=== PATIENT | female | born 1995 | race Hispanic/Latino ===

== ENCOUNTER 2016-10-08 14:43 | Emergency (ER) | payer MEDICAID ==
[2016-10-08 14:51] VITALS: BP 127/67; PULSE 91; RESP 19; TEMP 98.8; O2SAT 100
--- NOTE | 2016-10-08 15:16 | ED PDOC ---
HPI: Abdomen History Per: Patient History/Exam Limitations: no limitations Onset/Duration Of Symptoms: Hrs (13) Outside of [place] travel?: No Current Symptoms Are (Timing): Better Severity: Mild Location Of Pain/Discomfort: Epigastric Quality Of Discomfort: Unable To Describe Associated Symptoms: Chills, Nausea, Vomiting, Loss Of Appetite, Back Pain ( chronic). denies: Diarrhea, Chest Pain, Constipation, Urinary Symptoms Exacerbating Factors: None Alleviating Factors: None Last Bowel Movement: Today Additional History Per: Patient Last Menstral Period: 10/04/16 : 2 Para: 2 <Michelle aMciel - Last Filed: 10/08/16 16:52> <Anthony Cobian - Last Filed: 10/08/16 16:58> Time Seen by Provider: 10/08/16 15:11 Chief Complaint (Nursing): GI Problem Supervising Attending Note - Supervising Attending Note The Documented history was done by the: Physician Optometric Assistant, Attending Physician The documented physical exam was done by the: Physician Optometric Assistant, Attending Physician The documented procedures were done by the: Physician Optometric Assistant, Attending Physician - Attestation: I have personally seen and examined this patient.: Yes I have fully participated in the care of the patient.: Yes I have reviewed all pertinent clinical information: Yes <Anthony Cobian - Last Filed: 10/08/16 16:58> Past Medical History - Medical History PMH: Anemia, Asthma - Surgical History Surgical History: Appendectomy, - Family History Family History: States: Unknown Family Hx - Immunization History Hx Tetanus Toxoid Vaccination: No Hx Influenza Vaccination: No Hx Pneumococcal Vaccination: No <Michelle Maciel - Last Filed: 10/08/16 16:52> <Anthony Cobian - Last Filed: 10/08/16 16:58> Vital Signs: Last Vital Signs Temp 98.8 F 10/08/16 14:50 Pulse 91 H 10/08/16 14:50 Resp 19 10/08/16 14:50 BP 127/67 10/08/16 14:50 Pulse Ox 100 10/08/16 16:52 - Home Medications Home Medications: Ambulatory Orders Medication Instructions Recorded Nitrofurantoin Macrocrystals 100 mg PO BID #14 cap 03/07/15 [Macrobid] Ondansetron [Zofran] 4 mg PO Q8H #12 tab 04/10/16 Famotidine [Pepcid] 20 mg PO DAILY #14 tab 10/08/16 - Allergies Allergies/Adverse Reactions: Allergies Allergy/AdvReac Type Severity Reaction Status Date / Time No Known Allergies Allergy Verified 10/08/16 14:46 Review of Systems ROS Statement: Except As Marked, All Systems Reviewed And Found Negative <Michelle Maciel - Last Filed: 10/08/16 16:52> Physical Exam - Reviewed Vital Signs Reviewed: Yes (hr 91) - Physical Exam Appears: Positive for: Uncomfortable Head Exam: Positive for: ATRAUMATIC, NORMAL INSPECTION Skin: Positive for: Normal Color, Warm, Dry Eye Exam: Positive for: Normal appearance ENT: Positive for: Nasal Congestion. Negative for: Pharyngeal Erythema, Tonsillar Exudate Neck: Positive for: Normal, Painless ROM Cardiovascular/Chest: Positive for: Regular Rate, Rhythm, Chest Non Tender. Negative for: Murmur Respiratory: Positive for: Normal Breath Sounds. Negative for: Decreased Breath Sounds, Rales, Rhonchi, Wheezing ( ) <Michelle Maciel - Last Filed: 10/08/16 16:52> - Laboratory Results Result Diagrams: 10/08/16 15:32 10/08/16 15:32 Urine POC: Negative Urine dip results: Positive for: Blood - ECG O2 Sat by Pulse Oximetry: 100 <Michelle Maciel - Last Filed: 10/08/16 16:52> - Laboratory Results Result Diagrams: 10/08/16 15:32 10/08/16 15:32 <Anthony Cobian - Last Filed: 10/08/16 16:58> - Progress ED Course And Treament: Refusing medications for pain. WORKUP: * CBC * CMP * LIPASE * UDIP * UPREG reassess Pt seen and examined with Dr. Cobian. 16:40 CBC: microcytic anemia, hg 10.4 CMP: WNL Lipase : WNL Upreg negative udip +blood Pt stable in ED. No complaints presently. Informed pt of anemia. Need to establish care with PCP. Pt refused PO challenge. Stable to d/c home. (Michelle Maciel) Disposition - Patient ED Disposition Is Patient to be Admitted: No - Disposition Disposition: Routine/Home Disposition Time: 16:48 <Michelle Maciel - Last Filed: 10/08/16 16:52> <Anthony Cobian - Last Filed: 10/08/16 16:58> - Clinical Impression Clinical Impression: Abdominal pain, Vomiting - Disposition Referrals: at [place] [Outside] Condition: GOOD Additional Instructions: Follow up with your PCP in 2-3 days. Return for worsening. Prescriptions: Famotidine [Pepcid] 20 mg PO DAILY #14 tab Instructions: Abdominal Pain (ED) Forms: [facility] ED School/Work Excuse Print Language: MALAGASY
[2016-10-08 15:45] LABS: BASO % 0.4 % (0.0-2.0); EOS # 0.2 K/uL (0.0-0.7); EOS % 2.8 % (0.0-4.0); HEMOGLOBIN 10.4 g/dL (12.0-16.0); LYMPH # 1.5 K/uL (1.0-4.3); LYMPH % 20.8 % (20.0-40.0); MEAN CELL VOLUME 75.9 fl (81.0-99.0); MEAN CORPUSCULAR HEMOGLOBIN 24.2 pg (27.0-31.0); MEAN CORPUSCULAR HGB CONC 31.8 g/dL (33.0-37.0); MEAN PLATELET VOLUME 8.4 fl (7.2-11.7); MONO # 0.7 K/uL (0.0-0.8); MONO % 9.3 % (0.0-10.0); NEUT # 4.8 K/uL (1.8-7.0); NEUT % 66.7 % (50.0-75.0); NRBC % 0.1 % (0.0-0.0); RBC 4.31 Mil/uL (3.80-5.20); RED CELL DISTRIBUTION WIDTH 18.1 % (11.5-14.5); WHITE BLOOD COUNT 7.1 K/uL (4.8-10.8)
[2016-10-08 16:08] LABS: ALB/GLOB RATIO 1.2 (1.0-2.1); ALBUMIN 4.4 g/dL (3.5-5.0); ALT/SGPT 37 U/L (9-52); AST/SGOT 22 U/L (14-36); BLOOD UREA NITROGEN 9 mg/dl (7-17); CALCIUM 9.4 mg/dL (8.4-10.2); GFR AFRICAN-AMERICAN > 60; GFR NON-AFRICAN AMERICAN > 60; LIPASE 45 U/L (23-300)
== END 2016-10-08 17:00 | disposition home or self-care (01) ==
LOC: H.ER 14:43
DX: R10.13 Epigastric pain (principal); R11.10 Vomiting, unspecified; J45.909 Unspecified asthma, uncomplicated

== ENCOUNTER 2016-10-28 12:01 | Emergency (ER) | payer MEDICAID, OTHER ==
[2016-10-28 12:06] VITALS: BP 132/76; PULSE 84
[2016-10-28 12:11] VITALS: RESP 16; TEMP 97; O2SAT 98
--- NOTE | 2016-10-28 12:43 | ED PDOC ---
Upper Extremity Pain/Injury Time Seen by Provider: 10/28/16 12:12 Chief Complaint (Nursing): Upper Extremity Problem/Injury Chief Complaint (Provider): Right wrist pain History Per: Patient, Other (patient arrives with co-worker who is translating in german on behalf of patient) History/Exam Limitations: no limitations Current Symptoms Are (Timing): Still Present Quality: "Pain" Additional Complaint(s): Roe Reveles is a 21 y/o right-handed dominant female presenting to the ER on 10/28/2016 with complaints of pain to her right wrist. Patient reports pain originated after a machine fell onto her right wrist while at work. Patient has pain and swelling to her wrist along with a small abrasion. She denies any other injuries at this time. No associated hand pain, no numbness or tingling. Past Medical History Reviewed: Historical Data, Nursing Documentation, Vital Signs Vital Signs: Last Vital Signs Temp 97.0 F L 10/28/16 12:08 Pulse 84 10/28/16 12:08 Resp 16 10/28/16 12:08 BP 132/76 10/28/16 12:08 Pulse Ox 98 10/28/16 12:08 - Medical History PMH: Asthma - Surgical History Surgical History: Appendectomy, - Family History Family History: States: No Known Family Hx - Living Arrangements Living Arrangements: With Family - Social History Current smoker - smoking cessation education provided: No Alcohol: None Drugs: Denies - Immunization History Hx Tetanus Toxoid Vaccination: Yes - Home Medications Home Medications: Ambulatory Orders Medication Instructions Recorded Nitrofurantoin Macrocrystals 100 mg PO BID #14 cap 03/07/15 [Macrobid] Ondansetron [Zofran] 4 mg PO Q8H #12 tab 04/10/16 Famotidine [Pepcid] 20 mg PO DAILY #14 tab 10/08/16 - Allergies Allergies/Adverse Reactions: Allergies Allergy/AdvReac Type Severity Reaction Status Date / Time No Known Allergies Allergy Verified 10/08/16 14:46 Review of Systems ROS Statement: Except As Marked, All Systems Reviewed And Found Negative Musculoskeletal: Positive for: Other (right wrist injury) Physical Exam - Reviewed Nursing Documentation Reviewed: Yes Vital Signs Reviewed: Yes - Physical Exam Appears: Positive for: Non-toxic, No Acute Distress Skin: Positive for: Normal Color. 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 Negative for: Deformity Neurologic/Psych: Positive for: Alert, Oriented. Negative for: Motor/Sensory Deficits - ECG O2 Sat by Pulse Oximetry: 98 Pulse Ox Interpretation: Normal - Other Rad Right wrist x-ray X-Ray: Interpreted by Me, Viewed By Me X-Ray Interpretation: no fx, no dis Medical Decision Making Medical Decision Makin:12 Initial Impression- 21 y/o female with right wrist pain Initial Plan- * XR Right Wrist Pt declined pain medications. X-ray is negative. Velcro wrist splint applied. Advised ice, elevation and NSAID's prn pain. Patient was referred to ortho manufacturing controller for follow up. Documented by Sharon Velarde, acting as a scribe for Hanna Ng PA-C All medical record entries made by the Scribe were at my direction and personally dictated by me. I have reviewed the chart and agree that the record accurately reflects my personal performance of the history, physical exam, medical decision making, and the department course for this patient. I have also personally directed, reviewed, and agree with the discharge instructions and disposition. Procedures - Splinting Location: right wrist Pre-Made Type: velcro Pre-Proc Neuro Vasc Exam: normal Post-Proc Neuro Vasc Exam: normal Disposition - Clinical Impression Clinical Impression: Wrist sprain, Abrasion - Patient ED Disposition Is Patient to be Admitted: No Counseled Patient/Family Regarding: Studies Performed, Diagnosis, Need For Followup - Disposition Referrals: Gonzales Rios III, MD [Staff Provider] - Disposition: Routine/Home Disposition Time: 13:07 Condition: STABLE Additional Instructions: Ice, rest and elevate affected area. Over the counter tylenol or advil as needed for pain. Follow up with orthopedist for any persistent symptoms. Instructions: Wrist Sprain (ED) Forms: [employer] (Azeri), [facility] ED School/Work Excuse Print Language: FRISIAN
--- NOTE | 2016-10-28 18:24 | RAD ---
PROCEDURE: Right Wrist Radiographs. HISTORY: trauma COMPARISON: None. FINDINGS: BONES: Normal. No fracture. JOINTS: Normal. No dislocation. SOFT TISSUES: Normal. OTHER FINDINGS: None. IMPRESSION: Unremarkable right wrist radiographs Concordant results with the preliminary interpretation rendered by the emergency department physician procedure.
== END 2016-10-28 13:13 | disposition home or self-care (01) ==
LOC: H.ER 12:01
DX: S63.501A Unspecified sprain of right wrist, initial encounter (principal); W22.8XXA Striking against or struck by other objects, initial encounter; Y99.0 Civilian activity done for income or pay

== ENCOUNTER 2016-11-11 16:18 | Emergency (ER) | payer MEDICAID, OTHER ==
[2016-11-11 16:34] VITALS: BP 130/74; PULSE 93; RESP 18; TEMP 98.7; O2SAT 100
[2016-11-11] MEDS ORDERED: Sodium Chloride 0.9% 1,000 ML IV STA (17:07)
[2016-11-11] MEDS ORDERED: Atropine-Diphenoxylate 0.025-2.5 mg Tab PO STA (17:07)
--- NOTE | 2016-11-11 17:10 | ED PDOC ---
HPI: Abdomen Chief Complaint (Provider): diarrhea and abdominal pain History Per: Patient Onset/Duration Of Symptoms: Days (1) Outside of [place] travel?: No Current Symptoms Are (Timing): Still Present Location Of Pain/Discomfort: Diffuse, Epigastric Quality Of Discomfort: Cramping Associated Symptoms: Diarrhea. denies: Fever, Chills, Nausea, Vomiting, Urinary Symptoms Exacerbating Factors: Food Last Bowel Movement: Today Abnormal Vaginal Bleeding: No Last Menstral Period: 10/27/16 : 2 Para: 2 (one set of twins; one child who ) <Rachana Ortiz - Last Filed: 11/11/16 18:39> <Hanna Dee - Last Filed: 11/11/16 18:59> Time Seen by Provider: 11/11/16 16:37 Chief Complaint (Nursing): Abdominal Pain Additional Complaint(s): Pt is 21 yo F with PMH asthma and anemia presented to the ED with complaint of abdominal pain and diarrhea x 1 day, since yesterday at 6 am (35 hrs). Pt states that she woke up to cramping stomach yesterday morning and had the first episode of diarrhea. Pt had 9 more episodes yesterday during the day, woke up 3 times overnight, and had 4 more episodes this morning. Denies any recent travel , antibiotic use, supplement use, new/changes in medications, changes in diet. Has not tried any medications, states food makes the pain worse and exacerbates the diarrhea. Patient states the pain is non-radiating, constant but gets worse when there is cramping, rates the pain 10/10 when the cramping is present and 6/ 10 when it is not. States that when there is cramping and she has a bowel movement, the pain is somewhat alleviated until the next episode of cramping. Denies vomiting, nausea, chest pain, shortness of breath, dizziness. (Rachana Ortiz) Supervising Attending Note - Supervising Attending Note The Documented history was done by the: Physician Fixture Designer, Attending Physician The documented physical exam was done by the: Physician Fixture Designer, Attending Physician - Attestation: I have personally seen and examined this patient.: Yes I have fully participated in the care of the patient.: Yes I have reviewed all pertinent clinical information: Yes <Hanna Dee - Last Filed: 11/11/16 18:59> Past Medical History - Medical History PMH: Anemia, Asthma - Surgical History Surgical History: Appendectomy, - Family History Family History: States: No Known Family Hx - Social History Current smoker - smoking cessation education provided: No (never smoker) Alcohol: Social (birthdays, holidays) Drugs: Denies - Immunization History Hx Tetanus Toxoid Vaccination: Yes Hx Influenza Vaccination: No Hx Pneumococcal Vaccination: No <Rachana Ortiz - Last Filed: 11/11/16 18:39> <Hanna Dee - Last Filed: 11/11/16 18:59> Vital Signs: Last Vital Signs Temp 98.7 F 11/11/16 16:32 Pulse 93 H 11/11/16 16:32 Resp 18 11/11/16 16:32 BP 130/74 11/11/16 16:32 Pulse Ox 100 11/11/16 18:39 - Home Medications Home Medications: Ambulatory Orders Medication Instructions Recorded Nitrofurantoin Macrocrystals 100 mg PO BID #14 cap 03/07/15 [Macrobid] Ondansetron [Zofran] 4 mg PO Q8H #12 tab 04/10/16 Famotidine [Pepcid] 20 mg PO DAILY #14 tab 10/08/16 Atropine/Diphenoxylate [Lonox 2 tab PO QID PRN #20 tab 11/11/16 0.025 MG-2.5 MG] Dicyclomine [Bentyl] 20 mg PO BID PRN #30 tab 11/11/16 - Allergies Allergies/Adverse Reactions: Allergies Allergy/AdvReac Type Severity Reaction Status Date / Time No Known Allergies Allergy Verified 10/08/16 14:46 Review of Systems ROS Statement: Except As Marked, All Systems Reviewed And Found Negative Gastrointestinal: Positive for: Abdominal Pain, Diarrhea <Rachana Ortiz - Last Filed: 11/11/16 18:39> Physical Exam - Reviewed Vital Signs Reviewed: Yes - Physical Exam Appears: Positive for: Non-toxic (looks tired) Head Exam: Positive for: ATRAUMATIC, NORMAL INSPECTION Skin: Positive for: Warm, Dry Eye Exam: Positive for: EOMI, PERRL ENT: Positive for: Normal ENT Inspection. Negative for: Pharyngeal Erythema Neck: Positive for: Normal, Painless ROM, Supple Cardiovascular/Chest: Positive for: Regular Rate, Rhythm. Negative for: JVD, Murmur Respiratory: Positive for: Normal Breath Sounds. Negative for: Accessory Muscle Use, Wheezing, Respiratory Distress Gastrointestinal/Abdominal: Positive for: Bowel Sounds (hyperactive), Soft, Tenderness. Negative for: Mass, Distended, Rebound Back: Positive for: Normal Inspection. Negative for: Vertebral Tenderness Extremity: Positive for: Normal ROM. Negative for: Tenderness, Pedal Edema, Calf Tenderness, Deformity Neurologic/Psych: Positive for: Alert, steamer operator II-XII, Oriented <Rachana Ortiz - Last Filed: 11/11/16 18:39> - Laboratory Results Result Diagrams: 11/11/16 17:20 11/11/16 17:20 - ECG O2 Sat by Pulse Oximetry: 100 <Rachana Ortiz - Last Filed: 11/11/16 18:39> - Laboratory Results Result Diagrams: 11/11/16 17:20 11/11/16 17:20 <Hanna Dee - Last Filed: 11/11/16 18:59> - Progress ED Course And Treament: Pt seen and evaluated, appears uncomfortable. Urine preg and dipstick - neg IV hydration w/ NS Bentyl 20 mg PO Lomotil 2 tab Stool ova/parasites - collected and sent to lab CBC- microcytic anemia, no leukocytosis CMP- no electrolyte abnormalities 18:15 pt reassessed- states medication has helped her abdominal pain and cramping. Pt to be discharged with prescriptions for Bentyl and Lomotil, and advised to follow up with primary care physician. (Rachana Ortiz) Disposition - Patient ED Disposition Is Patient to be Admitted: No - Disposition Disposition: Routine/Home Disposition Time: 18:38 <Rachana Ortiz - Last Filed: 11/11/16 18:39> <Hanna Dee - Last Filed: 11/11/16 18:59> - Clinical Impression Clinical Impression: Enteritis - Disposition Condition: STABLE Additional Instructions: Please take medications as prescribed. Please follow up with PMD of your choice. You may call to make an appointment at the [facility] to establish care with new PMD. Prescriptions: Atropine/Diphenoxylate [Lonox 0.025 MG-2.5 MG] 2 tab PO QID PRN #20 tab PRN Reason: Diarrhea Dicyclomine [Bentyl] 20 mg PO BID PRN #30 tab PRN Reason: abdominal pain Instructions: Acute Diarrhea (ED), Nutrition Tips for Relief of Diarrhea (ED) Print Language: MOHAWK
[2016-11-11 17:26] LABS: BASO % 0.5 % (0.0-2.0); EOS # 0.1 K/uL (0.0-0.7); EOS % 0.8 % (0.0-4.0); HEMATOCRIT 31.7 % (34.0-47.0); LYMPH # 2.3 K/uL (1.0-4.3); LYMPH % 29.9 % (20.0-40.0); MEAN CELL VOLUME 75.1 fl (81.0-99.0); MEAN CORPUSCULAR HEMOGLOBIN 24.7 pg (27.0-31.0); MEAN CORPUSCULAR HGB CONC 32.9 g/dL (33.0-37.0); MEAN PLATELET VOLUME 7.9 fl (7.2-11.7); MONO # 0.4 K/uL (0.0-0.8); MONO % 4.9 % (0.0-10.0); NEUT # 4.8 K/uL (1.8-7.0); NEUT % 63.9 % (50.0-75.0); NRBC % 0.1 % (0.0-0.0); RED CELL DISTRIBUTION WIDTH 16.6 % (11.5-14.5); WHITE BLOOD COUNT 7.6 K/uL (4.8-10.8)
[2016-11-11 17:34] LABS: ALB/GLOB RATIO 1.4 (1.0-2.1); ALKALINE PHOSPHATASE 102 U/L (38-126); ALT/SGPT 40 U/L (9-52); AST/SGOT 26 U/L (14-36); BILIRUBIN,TOTAL 0.3 mg/dl (0.2-1.3); BLOOD UREA NITROGEN 14 mg/dl (7-17); CALCIUM 9.3 mg/dL (8.4-10.2); CARBON DIOXIDE 26 mmol/L (22-30); CHLORIDE 103 mmol/L (98-107); GFR AFRICAN-AMERICAN > 60; GLUCOSE,RANDOM 88 mg/dL (65-105); LIPASE 131 U/L (23-300); MAGNESIUM 1.7 MG/DL (1.6-2.3); PHOSPHOROUS 3.6 mg/dl (2.5-4.5); POTASSIUM 3.9 MMOL/L (3.6-5.0); SODIUM 139 mmol/l (132-148); TOTAL PROTEIN 7.5 G/DL (6.3-8.2)
== END 2016-11-11 19:06 | disposition home or self-care (01) ==
LOC: H.ER 16:18
DX: K52.9 Noninfective gastroenteritis and colitis, unspecified (principal); J45.909 Unspecified asthma, uncomplicated
CPT/HCPCS: 80053; 81025; 83690; 83735; 84100; 85025; 87045; 87177; 87209; 96360; 99284; J7040

== ENCOUNTER 2016-11-15 18:29 | Emergency (ER) | payer MEDICAID ==
[2016-11-15 18:41] VITALS: BP 115/64; PULSE 92; RESP 16; TEMP 98.5; O2SAT 100
[2016-11-15 18:46] VITALS: BMI 26.5
[2016-11-15 20:23] LABS: RBC URINE 14 /hpf (0-3); URINE BACTERIA RARE (<OCC); URINE BILIRUBIN NEGATIVE (NEGATIVE); URINE COLOR YELLOW (YELLOW); URINE GLUCOSE (UA) NEG (Normal); URINE KETONE NEGATIVE (NEGATIVE); URINE LEUKOCYTE ESTERASE NEG Leu/uL (Negative); URINE PROTEIN NEGATIVE (NEGATIVE); URINE UROBILINOGEN 0.2-1.0 mg/dL (0.2-1.0); WBC URINE 3 /hpf (0-5)
[2016-11-15 20:27] LABS: URINE BLOOD SMALL (NEGATIVE)
[2016-11-15 20:34] LABS: ALB/GLOB RATIO 1.4 (1.0-2.1); ALKALINE PHOSPHATASE 81 U/L (38-126); ALT/SGPT 26 U/L (9-52); AST/SGOT 21 U/L (14-36); BILIRUBIN,TOTAL 0.3 mg/dl (0.2-1.3); BLOOD UREA NITROGEN 13 mg/dl (7-17); CALCIUM 9.1 mg/dL (8.4-10.2); CARBON DIOXIDE 24 mmol/L (22-30); CHLORIDE 104 mmol/L (98-107); GFR AFRICAN-AMERICAN > 60; GLUCOSE,RANDOM 79 mg/dL (65-105); LIPASE 104 U/L (23-300); SODIUM 138 mmol/l (132-148); TOTAL PROTEIN 7.1 G/DL (6.3-8.2)
[2016-11-15 20:36] LABS: BASO % 0.4 % (0.0-2.0); EOS # 0.1 K/uL (0.0-0.7); EOS % 0.8 % (0.0-4.0); HEMATOCRIT 30.7 % (34.0-47.0); LYMPH # 2.3 K/uL (1.0-4.3); LYMPH % 27.1 % (20.0-40.0); MEAN CELL VOLUME 75.3 fl (81.0-99.0); MEAN CORPUSCULAR HEMOGLOBIN 23.7 pg (27.0-31.0); MEAN CORPUSCULAR HGB CONC 31.5 g/dL (33.0-37.0); MEAN PLATELET VOLUME 8.3 fl (7.2-11.7); MONO # 0.6 K/uL (0.0-0.8); NEUT # 5.4 K/uL (1.8-7.0); NEUT % 64.7 % (50.0-75.0); RED CELL DISTRIBUTION WIDTH 16.6 % (11.5-14.5); WHITE BLOOD COUNT 8.3 K/uL (4.8-10.8)
--- NOTE | 2016-11-15 20:44 | ED PDOC ---
HPI: Abdomen Time Seen by Provider: 11/15/16 19:21 Chief Complaint (Nursing): Abdominal Pain Chief Complaint (Provider): Abdominal pain History Per: Patient History/Exam Limitations: no limitations Onset/Duration Of Symptoms: Days (1) Additional Complaint(s): Patient is a 21 y/o female with a past surgical history of an appendectomy and C -section presenting to the emergency department for acute constant upper abdominal pain ongoing for one day that radiates to her back with associated mild dysuria. Denies nausea, vomiting, diarrhea, fever, cough, and shortness of breath. PCP: none provided. Past Medical History Reviewed: Historical Data, Nursing Documentation, Vital Signs Vital Signs: Last Vital Signs Temp 98.5 F 11/15/16 18:40 Pulse 92 H 11/15/16 18:40 Resp 16 11/15/16 18:40 BP 115/64 11/15/16 18:40 Pulse Ox 100 11/15/16 22:44 - Medical History PMH: Anemia, Asthma - Surgical History Surgical History: Appendectomy, (2) - Family History Family History: States: Unknown Family Hx - Social History Current smoker - smoking cessation education provided: No Ex-Smoker (has not smoked in the last 12 months): No Alcohol: None Drugs: Denies - Immunization History Hx Tetanus Toxoid Vaccination: Yes Hx Influenza Vaccination: No Hx Pneumococcal Vaccination: No - Home Medications Home Medications: Ambulatory Orders Medication Instructions Recorded Nitrofurantoin Macrocrystals 100 mg PO BID #14 cap 03/07/15 [Macrobid] Ondansetron [Zofran] 4 mg PO Q8H #12 tab 04/10/16 Famotidine [Pepcid] 20 mg PO DAILY #14 tab 10/08/16 Atropine/Diphenoxylate [Lonox 2 tab PO QID PRN #20 tab 11/11/16 0.025 MG-2.5 MG] Dicyclomine [Bentyl] 20 mg PO BID PRN #30 tab 11/11/16 Tamsulosin [Flomax] 0.4 mg PO DAILY #10 cap 11/15/16 traMADol [Ultram] 50 mg PO Q6 #8 tab 11/15/16 - Allergies Allergies/Adverse Reactions: Allergies Allergy/AdvReac Type Severity Reaction Status Date / Time No Known Allergies Allergy Verified 11/15/16 18:55 Review of Systems ROS Statement: Except As Marked, All Systems Reviewed And Found Negative Constitutional: Negative for: Fever Respiratory: Negative for: Cough, Shortness of Breath Gastrointestinal: Positive for: Abdominal Pain (acute, constant, upper, radiating). Negative for: Nausea, Vomiting, Diarrhea Genitourinary Female: Positive for: Dysuria (mild) Physical Exam - Reviewed Nursing Documentation Reviewed: Yes Vital Signs Reviewed: Yes - Physical Exam Appears: Positive for: Well, Non-toxic, No Acute Distress Head Exam: Positive for: ATRAUMATIC, NORMAL INSPECTION, NORMOCEPHALIC Skin: Positive for: Normal Color, Warm, Dry Eye Exam: Positive for: EOMI, Normal appearance, PERRL ENT: Positive for: Normal ENT Inspection Neck: Positive for: Normal, Painless ROM, Supple Cardiovascular/Chest: Positive for: Regular Rate, Rhythm. Negative for: Murmur Respiratory: Positive for: Normal Breath Sounds. Negative for: Accessory Muscle Use, Respiratory Distress Gastrointestinal/Abdominal: Positive for: Tenderness (epigastric and right upper quadrant abdominal tenderness) Back: Positive for: Normal Inspection Extremity: Positive for: Normal ROM. Negative for: Pedal Edema Neurologic/Psych: Positive for: Alert, Oriented (x3) - Laboratory Results Result Diagrams: 11/15/16 19:59 11/15/16 19:59 - ECG O2 Sat by Pulse Oximetry: 100 (RA) Pulse Ox Interpretation: Normal Medical Decision Making Medical Decision Making: Time: 19:24 Initial impression: Abdominal pain Initial plan: Urine Dipstick Urine Toradol Heplock Insertion Abdominal Ultrasound Reevaluation 21:34 Abdominal Ultrasound reviewed and findings noted: Liver: Liver is unremarkable. There is hepatopedal flow in the main portal vein. Gallbladder: Gallbladder is distended with no stones, sludge or wall thickening. Common bile duct: Common bile duct measures 3 mm in diameter. Pancreas: Pancreas is partially obscured by bowel gas. Visualized portion is unremarkable Kidneys: Kidneys are normal in size.There is no pelvocaliectasis.. There is a shadowing, nonobstructing left lower pole renal stone Spleen: Spleen is unremarkable. Aorta: Visualized portions of the aorta and inferior vena cava are unremarkable. Inferior vena cava: See above. IMPRESSION: Nonobstructing left lower pole renal stone; no gallstones or ductal dilatation Patient was not tender over the gallbladder. 20:00 Patient reports significant improvement of symptoms. 21:00 Upon provider reevaluation patient is feeling significantly better, is medically stable, and requires no further treatment in the ED at this time. Patient will be discharged with Rx for Flomax and Ultram. Counseling was provided and all questions were answered regarding diagnosis and need for follow up with referred clinic in two days. There is agreement to discharge plan. Return if symptoms persist or worsen. Clinical Impression: Renal calculus Scribe Attestation: Documented by Nita Rapp, acting as a scribe for Sunil Richards MD. Provider Scribe Attestation: All medical record entries made by the Scribe were at my direction and personally dictated by me. I have reviewed the chart and agree that the record accurately reflects my personal performance of the history, physical exam, medical decision making, and the department course for this patient. I have also personally directed, reviewed, and agree with the discharge instructions and disposition. Disposition - Clinical Impression Clinical Impression: Ureteral calculus - Patient ED Disposition Is Patient to be Admitted: No Counseled Patient/Family Regarding: Studies Performed, Diagnosis, Need For Followup, Rx Given - Disposition Referrals: [facility] [Outside] Disposition: Routine/Home Disposition Time: 21:00 Condition: STABLE Prescriptions: Tamsulosin [Flomax] 0.4 mg PO DAILY #10 cap traMADol [Ultram] 50 mg PO Q6 #8 tab Instructions: Ureteral Stones (ED) Forms: [employer] (Portuguese), [employer] (Occitan) Print Language: UZBEK
--- NOTE | 2016-11-15 21:35 | US ---
EXAM: US Abdomen Complete EXAM DATE/TIME: 11/15/2016 7:31 PM CLINICAL HISTORY: 21 years old, female; Pain; Abdominal pain; Generalized; Additional info: Abd pain TECHNIQUE: Real-time ultrasound of the abdomen (complete) with image documentation. COMPARISON: There are no prior studies for comparison. FINDINGS: Liver: Liver is unremarkable. There is hepatopedal flow in the main portal vein. Gallbladder: Gallbladder is distended with no stones, sludge or wall thickening. Common bile duct: Common bile duct measures 3 mm in diameter. Pancreas: Pancreas is partially obscured by bowel gas. Visualized portion is unremarkable Kidneys: Kidneys are normal in size.There is no pelvocaliectasis.. There is a shadowing, nonobstructing left lower pole renal stone Spleen: Spleen is unremarkable. Aorta: Visualized portions of the aorta and inferior vena cava are unremarkable. Inferior vena cava: See above. IMPRESSION: Nonobstructing left lower pole renal stone; no gallstones or ductal dilatation Patient was not tender over the gallbladder
== END 2016-11-15 22:38 | disposition home or self-care (01) ==
LOC: H.ER 18:29
DX: N20.2 Calculus of kidney with calculus of ureter (principal); J45.909 Unspecified asthma, uncomplicated; D64.9 Anemia, unspecified
CPT/HCPCS: 76700; 80053; 81003; 81025; 83690; 85025; 96374; 99283; J1885